=== PATIENT | female | born 1990 | race Caucasian/White ===

== ENCOUNTER 2025-01-22 09:49 | Emergency (ER) | payer OTHER, SELFPAY ==
[2025-01-22 09:51] VITALS: BP 116/81; PULSE 91; RESP 16; TEMP 36.4; O2SAT 98
--- NOTE | 2025-01-22 09:59 | ED.LOWEXIN ---
HPI - Extremity Injury (Lower) General Chief Complaint: Extremity Injury, Lower Stated Complaint: left knee pain Time Seen by Provider: 01/22/25 09:55 Source: patient Mode of arrival: ambulatory Limitations: no limitations History of Present Illness HPI Narrative: 34-year-old female with a history of hypertension, arthritis, anxiety/ depression presents to the ED with a 1 day history of -- left knee pain which is made worse while walking. No history of trauma. No prior knee pain. Onset (ago): day(s) ( One day) Injury: Left: knee Severity: moderate Relieving factors: immobilization Exacerbating factors: weight bearing Other symptoms: none Related Data Home Medications ?Medication ?Instructions ?Recorded ?Confirmed ?Last Taken ?Type bupropion HCl 150 mg 24 hr tablet, 150 mg PO DAILY 01/22/25 Unknown History extended release (Wellbutrin XL) fluoxetine 40 mg capsule 40 mg PO DAILY 01/22/25 Unknown History meloxicam 15 mg tablet 15 mg PO DAILY 01/22/25 Unknown History methocarbamol 500 mg tablet 500 mg PO TID 01/22/25 Unknown History propranolol 10 mg tablet 10 mg PO Q12H 01/22/25 Unknown History ropinirole 1 mg tablet 1 mg PO BID 01/22/25 Unknown History temazepam 15 mg capsule (Restoril) 15 mg PO HS 01/22/25 Unknown History topiramate 100 mg tablet (Topamax) 100 mg PO HS 01/22/25 Unknown History Allergies Allergy/AdvReac Type Severity Reaction Status Date / Time Penicillins Allergy Mild Rash Verified 01/22/25 09:59 Review of Systems Review of Systems: All systems reviewed & are unremarkable except as noted in HPI and below PMFSH Past Medical History Medical History Arthritis Hypertension Exam Narrative: afebrile. Blood pressure stable. Const: General: healthy appearing and no acute distress Nutritional Appearance: well nourished Orientation/consciousness: patient oriented x3 Limitations: no limitations HENMT: Head: normal to inspection Ears: external ears normal Face/Nose/Sinus: Normal external nose present Face and sinus: normal facial exam Mouth: Yes Normal oral and palatal mucosa present Teeth and gingiva: dentition normal Eyes: Conjunctivae: conjunctivae normal Pupils: Equal, round and reactive pupils present EOM: EOMs intact bilaterally Direct Ophthalmoscopy: no photophobia Neck: Neck: normal visual inspection, no lymphadenopathy and no meningeal signs Chest: Chest palpation & inspection: normal inspection of the chest Resp: Effort & Inspection: normal respiratory effort Auscultation: clear to auscultation bilaterally Cardio: Rate: regular rate Rhythm: regular rhythm GI: GI Palp: Yes Soft to palpation Auscultation: normal bowel sounds Other: No tenderness/rigidity / rebound. Back/Spine/Pelvis: Back: no CVA tenderness Skin: General skin exam: normal color Rashes: no rashes Wounds: no wounds Neuro: General: patient oriented x3, moves all extremities, no meningeal signs, no focal motor deficits and CN's II-XI intact bilaterally Speech: normal speech Extrem: General: normal to inspection and no clubbing, cyanosis or edema Other: Left knee-- no swelling. Minimal tenderness noted. Normal range of motion. sprain of the lateral collateral ligament of the knee Psych: Mental Status: mental status grossly normal Affect: normal affect Attitude: cooperative Course Course Emergency Course: left knee pain. No history of trauma. Exam is suggestive of sprain of the lateral collateral ligament. x-ray does not show any acute findings Vital Signs Vital signs: Vital Signs Temperature 36.4 C 01/22/25 09:51 Pulse Rate 91 01/22/25 09:51 Respiratory Rate 16 01/22/25 09:51 Blood Pressure 116/81 01/22/25 09:51 Pulse Oximetry 98 01/22/25 09:51 Oxygen Delivery Room Air 01/22/25 09:51 Temperature 36.4 C 01/22/25 09:51 Pulse Rate 91 01/22/25 09:51 Respiratory Rate 16 01/22/25 09:51 Blood Pressure 116/81 01/22/25 09:51 Pulse Oximetry 98 01/22/25 09:51 Oxygen Delivery Room Air 01/22/25 09:51 MDM - Extremity Injury (Lower) MDM Narrative Medical decision making narrative: Knee sprain Differential Diagnosis Differential diagnosis: Likely acute internal derangement of knee Lab Data Attestation: I reviewed the patient's lab results. Discharge Plan Discharge Clinical Impression: Knee sprain Qualifiers: Encounter type: initial encounter Involved ligament of knee: lateral collateral ligament Laterality: left Qualified Code(s): S83.422A - Sprain of lateral collateral ligament of left knee, initial encounter Patient Disposition: Home, Self-Care Condition: Stable Instructions: Antibiotic Form, Knee Sprain (ED) Patient Language: Luxembourgish Prescriptions: No Action bupropion HCl [Wellbutrin XL] 150 mg tablet extended release 24 hr 150 mg PO DAILY temazepam [Restoril] 15 mg capsule 15 mg PO HS topiramate [Topamax] 100 mg tablet 100 mg PO HS fluoxetine 40 mg capsule 40 mg PO DAILY meloxicam 15 mg tablet 15 mg PO DAILY methocarbamol 500 mg tablet 500 mg PO TID propranolol 10 mg tablet 10 mg PO Q12H ropinirole 1 mg tablet 1 mg PO BID Follow-up/Referrals: UNKNOWN,DOCTOR [Non-Staff] - Time of Disposition: 10:57
[2025-01-22 11:05] VITALS: BP 124/91; PULSE 86; RESP 18; TEMP 36.7; O2SAT 100
== END 2025-01-22 11:10 | disposition home or self-care (01) ==
PROVIDERS: Emergency Provider Internal Medicine Critical Care Medicine; PCP Family Medicine
DX: S83.422A Sprain of lateral collateral ligament of left knee, initial encounter (principal); I10 Essential (primary) hypertension; Z79.899 Other long term (current) drug therapy; Z79.1 Long term (current) use of non-steroidal anti-inflammatories (NSAID); X58.XXXA Exposure to other specified factors, initial encounter
CPT/HCPCS: 73562; 99283

== ENCOUNTER 2025-03-28 05:28 | Emergency (ER) | payer OTHER, SELFPAY ==
--- NOTE | ~2025-03-28 | XR_ITS ---
Lumbosacral Spine: AP and lateral views Clinical History: Pain Findings: The normal lordotic curve is maintained. The vertebral bodies and posterior elements are i ntact. The intervertebral disc spaces are preserved. The sacroiliac joints are normally outlined. Impression: No significant abnormality. Reviewed, dictated and finalized at [facility]. Impression: No significant abnormality.
--- OUTSIDE RECORDS SUMMARY | 2025-03-28 05:30 | XMS_ITS | Clinical Summary ---
Author Organization [facility] Address [address] [place] [address] Care Team Providers Care Manugrapher Name Role Phone Lorraine Grimaldo MD Primary Care Provider Jessy Michaels Unavailable [phone] Allergies Active Allergy Reactions Criticality Noted Date Comments Penicillins Rash Medium 08/24/2019 Medications cholecalciferol (Vitamin D3) 400 unit capsule Active meloxicam (MOBIC) 15 mg tablet Take 1 tablet (15 mg total) by mouth daily 3 Active buPROPion XL (WELLBUTRIN XL) 150 mg 24 hr tablet Take 1 tablet (150 mg total) by mouth security assistant before breakfast 3 Active rOPINIRole (REQUIP) 1 mg tablet Take 1 tablet (1 mg total) by mouth daily 3 Active temazepam (RESTORIL) 15 mg capsule Take 1 capsule (15 mg total) by mouth nightly as needed 3 Active medroxyPROGESTER one 150 mg/mL injection 4 Active methocarbamoL (ROBAXIN) 500 mg tablet 4 Active Nurtec ODT tablet,disintegr ating TAKE ONE TABLET BY MOUTH AT MIGRAINE ONSET 4 Active ALPRAZolam (XANAX) 0.5 mg tablet Take 1 tablet (0.5 mg total) by mouth 2 (two) times a day as needed 4 Active FLUoxetine (PROzac) 40 mg capsule Take 1 capsule (40 mg total) by mouth daily 4 Active topiramate (TOPAMAX) 100 mg tablet Take 1 tablet (100 mg total) by mouth nightly at bedtime. 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 Encounters Date Type Department Care Team Description 01/06/2025 1:00 PM DIRECT SUPPORT PROFESSIONAL HOME HEALTH [facility] [address] [place] [address] 4[address] [place] [id number] Manav Mendez MD Hemiplegic migraine without status migrainosus, not intractable (Primary Dx) 12/29/2024 [facility]phone [facility] [address] [place] [address] 4[address] [place] [address] Sarah Upton Symptom Based Call from Last 3 Months Surgical History Surgery Date Site/Laterality Comments RECONSTRUCTION 11/24/1993 - 11/23/1994 Craniofacial reconstruction Family History * Patient is adopted Medical History Relation Name Comments Diabetes Father Heart attack Father Hyperlipidemia Father Hypertension Father Heart attack Mother Hyperlipidemia Mother Hypertension Mother Relation Name Status Comments Father Mother Social History Tobacco Use Types Packs/Day Years Used Date Smoking Tobacco: Every Day Cigarettes Smokeless Tobacco: Never Tobacco Cessation:Ready to Q uit: Yes; Counseling Given: Yes Alcohol Use Standard Drinks/Week Comments Not Currently 0 (1 standard drink = 0.6 oz pur e alcohol) AUDIT-C Answer Date Recorded Q1: How often do you have a drink containing alc ohol? Monthly or less 11/10/2023 Average Number of Drinks Not on file 023 Frequency of Binge Drinking Not on file 10/24 Hunger Vital Sign Answer Date Recorded Within the past 12 months, y ou worried that your food would run out before you got the money to buy more. Never true 01/06/20 25 Within the past 12 months, t he food you bought just didn't last and you didn't have money to get more. Never true 01/06/2025 Personal Safety Answer Date Recorded Have you ever been in or are you currently in a harmful physical or emotional relationship or is someone making you feel afraid or unsafe? Denies 07/18/2023 Comments Unknown Sex and Gender Information Value Date Recorded Sex Assigned at Not on file Legal Sex Female 6:41 AM [employer] Gender Identity Female 11/25/2023 2:05 AM [employer] Sexual Orientation Straight 11/25/2023 2: 05 AM [employer] Obstetrics History Last Filed Vital Signs Vital Sign Reading Time Taken Comments Blood Pressure 111/61 01/06/2025 1:04 PM [employer] Pulse 72 01/06/2025 1:04 PM [employer] Temperature 36.3 C (97.4 F) 01/06/2025 1:04 PM [employer] Respiratory Rate 16 01/06/2025 1:04 PM [employer] Oxygen Saturation 95% 01/06/2025 1:04 PM [employer] Inhaled Oxygen Concentration - - Weight 71.2 kg (157 lb) 01/06/2025 1:04 PM [employer] [employer] [facility] Height 152.4 cm (5') 01/06/2025 1:04 PM [employer] [employer] [facility] Body Mass Index 30.66 01/06/2025 1:04 PM [employer] Plan of Treatment Health Maintenance Due Date Last Done Comments Cervical Cancer Screening 1990 Depression Screening 1990 Hepatitis C Screening 1990 Varicella Vaccines (2 of 2 - 2-dose childhood series) 10/05/2002 07/13/2002 Regular Well Visit/Exam 18-64 2008 Pneumococcal vaccine <65 (1 of 2 - PCV) 2009 DTaP/Tdap/Td Vaccine (8 - Td or Tdap) 04/27/2026 04/27/2016, 09/04/2006, 08/26/1996, Additional history exists Hepatitis B Screening Completed 12/23/2002 , 07/13/2002, 08/26/1996 Influenza Vaccine Completed 08/30/2024 HPV Vaccines Aged Out No longer eligi ble based on patient's age to complete this topic Insurance [facility] Care Teams Manugrapher Relationship Specialty Start Date End Date Lorraine Grimaldo MD [address] [place] [address] PCP - General Family Medicine 12/29/20 [place] [address] Physician International Marketing Manager Family Medicine 07/16/23
--- OUTSIDE RECORDS SUMMARY | 2025-03-28 05:30 | XMS_ITS | Referral Summary ---
Author Organization [facility] Address [address] [place] [id number] Care Team Providers Care Cap Machine Operator Name Role Phone Lorraine Grimaldo MD Primary Care Provider Jessy Michaels Unavailable [phone] Encounters Date Type Department Care Team Description 01/06/2025 1:00 PM PIPE LINE INSPECTOR [facility] [address] [place] [address] [address] [place] [address] Manav Mendez MD Hemiplegic migraine without status migrainosus, not intractable (Primary Dx) 12/29/2024 [facility]phone [facility] [address] [place] [address] [address] [place] [address] Sarah Upton Symptom Based Call from Last 3 Months Allergies Active Allergy Reactions Criticality Noted Date Comments Penicillins Rash Medium 08/24/2019 Medications cholecalciferol (Vitamin D3) 400 unit capsule Active meloxicam (MOBIC) 15 mg tablet Take 1 tablet (15 mg total) by mouth daily 3 Active buPROPion XL (WELLBUTRIN XL) 150 mg 24 hr tablet Take 1 tablet (150 mg total) by mouth lead burner apprentice before breakfast 3 Active rOPINIRole (REQUIP) 1 [...] 12/21/2024 Ocular rosacea 01/17/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 Social History Tobacco Use Types Packs/Day Years [...] on file Legal Sex Female 6:41 AM PIPE LINE INSPECTOR Gender Identity Female 11/25/2023 2:05 AM PIPE LINE INSPECTOR Sexual Orientation Straight 11/25/2023 2: 05 AM PIPE LINE INSPECTOR Last Filed Vital Signs Vital Sign Reading Time Taken Comments Blood Pressure 111/61 01/06/2025 1:04 PM PIPE LINE INSPECTOR Pulse 72 01/06/2025 1:04 PM PIPE LINE INSPECTOR Temperature 36.3 C (97.4 F) 01/06/2025 1:04 PM PIPE LINE INSPECTOR Respiratory Rate 16 01/06/2025 1:04 PM PIPE LINE INSPECTOR Oxygen Saturation 95% 01/06/2025 1:04 PM PIPE LINE INSPECTOR Inhaled Oxygen Concentration - - Weight 71.2 kg (157 lb) 01/06/2025 1:04 PM PIPE LINE INSPECTOR Height 152.4 cm (5') 01/06/2025 1:04 PM PIPE LINE INSPECTOR Body Mass Index 30.66 01/06/2025 1:04 PM PIPE LINE INSPECTOR Plan of Treatment Not on file Insurance [facility] Care Teams Cap Machine Operator Relationship Specialty Start Date End Date Lorraine Grimaldo MD [address] [place] [address] PCP - General Family Medicine 12/29/20 Jessy Michaels PA [address] [place] [address] Physician Bowling Ball Weigher And Packer Family Medicine 07/16/23
--- OUTSIDE RECORDS SUMMARY | 2025-03-28 05:31 | XMS_ITS | Clinical Summary ---
Author Organization [facility] Address [address] [place] [address] Care Team Providers Care Training Assistant Name Role Phone Lorraine Grimaldo MD Primary Care Provider [phone] Allergies Active Allergy Reactions Criticality Noted Date Comments Penicillins Unknown 08/24/2019 Reaction occurred when she was an infant therefore unsure of reaction Medications FLUoxetine 40 MG capsule Take 1 capsule (40 mg total) by mouth daily. Active Cholecalciferol 10 MCG (400 UNIT) Cap A ctive buPROPion XL (WELLBUTRIN XL) 150 MG 24 hr tablet Take 1 tablet (150 mg total) by mouth every morning. 3 Active meloxicam (MOBIC) 15 MG tablet Take 1 tablet (15 mg total) by mouth daily. 3 Active rOPINIRole (REQUIP) 1 MG tablet Take 1 tablet (1 mg total) by mouth nightly at bedtime. 3 Active temazepam (RESTORIL) 15 MG capsule Take 1 capsule (15 mg total) by mouth nightly as needed. 3 Active topiramate (TOPAMAX) 100 MG tablet Take 1 tablet (100 mg total) by mouth daily. Active ALPRAZolam (XANAX) 0.5 MG tablet Take 1 tablet (0.5 mg total) by mouth 2 (two) times daily as needed for Anxiety. Active methocarbamol (ROBAXIN) 500 MG tablet Take 1 tablet (500 mg total) by mouth 3 (three) times daily as needed. Active prochlorperazine (COMPAZINE) 10 MG tablet Take 1 tablet (10 mg total) by mouth every 6 (six) hours as needed. 4 Active propranolol (INDERAL) 10 MG tablet Take 1 tablet (10 mg total) by mouth 2 (two) times daily. 3 Active NURTEC 75 MG disintegrating tablet Take 1 tablet (75 mg total) by mouth once as needed. Active naproxen (NAPROSYN) 500 MG tablet Take 1 tablet (500 mg total) by mouth 2 (two) times daily. 5 Active Active Problems Problem Noted Date Diagnosed Date Neurological deficit present 07/02/2023 Right facial numbness 07/01/2023 IUGR (intrauterine growth re striction) affecting care of mother ([facility]) 02/02/2020 Threatened labor ([facility]) 01/01/2020 Multigravida in third trimester ([facility]) 2019 Overview (12/31/2019): EDC 02/23/2020 by 1st trimester sono. 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, antepartum ([facility] 12/31/2019 Overview (12/31/2019): Followed by MFM and last seen yesterday, 12/30/2019 labor in third trimester ([facility]) 12/31 Overview (12/31/2019): Contractions started at 1430 and arrived at [facility] at 1600 and dilated 4cm/zero station/70%/soft/vertex labor ([facility]) 12/31/2019 Encounters Date Type Department Care Team Description 03/18/[address] [address] Precious Powell FNP-VERNON Question 03/15/2025 1:45 PM CDT Office Visit [address] [address] Granat, Maryjane, PA New Patient; Work Comp (LEFT Knee); Knee Pain (DOI 01/21/2025) 03/15/2025 1:40 PM CDT - 03/15/2025 11:59 PM CDT Hospital Encounter [facility] [address] [place] [address] Maryjane Flores PA Discharge Disposition: Home or Self Care (Routine Discharge) 03/15/2025 MyChart Message Enc [address] [address] Maryjane Flores PA Visit Follow Up 03/15/2025 Travel 03/10/2025 Orders Only [address] [address] Maryjane Flores PA 03/09/[address] [address] Maryjane Flores PA Referral 03/03/2025 2:02 PM CDT - 03/03/2025 11:59 PM CDT Hospital Encounter [facility] [address] [place] [address] Cesilia Jimenez NP Discharge Disposition: Home or Self Care (Routine Discharge) 03/03/2025 Travel from Last 3 Months Family History Medical History Relation Comments Defects Daughter Cancer Father Diabetes Father Hypertension Father Cancer Maternal Uncle COPD Mother Hypertension Mother Hypertension Sister 1 YATES DISEASE Sister 1 Hypertension Sister 2 Relation Status Comments Daughter Alive Father Maternal Uncle Alive Mother Sister 1 Sister 2 Alive Social History Tobacco Use Types Packs/Day Years Used Date Smoking Tobacco: Some Days Cigarettes Smokeless Tobacco: Never Tobacco Cessation:Ready to Q uit: Not Asked; Counseling Given: Not Answered Comments:given counseling on effects on that baby Alcohol Use Standard Drinks/Week Comments No 0 (1 standard drink = 0.6 oz pur e alcohol) Humiliation, Afraid, Rape, and Kick questionnair e Answer Date Recorded Within the last year, have y ou been afraid of your partner or ex-partner? Patient declined 07/02/2023 Within the last year, have y ou been humiliated or emotionally abused in other ways by your partner or ex-partner? Patient declined 07/02/2023 Within the last year, have y ou been kicked, hit, slapped, or otherwise physically hurt by your partner or ex-partner? Patient declined 07/02/2023 Within the last year, have y ou been raped or forced to have any kind of sexual activity by your partner or ex-partner? Patient declined 07/02/2023 Social Connection and Isolation Panel [NHANES] A nswer Date Recorded In a typical week, how many times do you talk on the phone with family, friends, or neighbors? Patient declined 07/02/2023 How often do you get togethe r with friends or relatives? Patient declined 07/02/2023 How often do you attend mosque or mormon serv ices? Patient declined 07/02/2023 Do you belong to any clubs o r organizations such as mosque groups, unions, fraternal or athletic groups, or school groups? Patient declined 07/02/2023 How often do you attend meet ings of the clubs or organizations you belong to? Patient declined 07/02/2023 Are you , , di vorced, , never , or living with a partner? Patient declined 07/02/2023 AUDIT-C Answer Date Recorded Frequency of Alcohol Consumption Never 08/24/2019 Average Number of Drinks Not on file 019 Frequency of Binge Drinking Not on file 11/2018 Overall Financial Resource Strain (CARDIA) Answe r Date Recorded How hard is it for you to pa y for the very basics like food, housing, medical care, and heating? Patient declined 07/02/2023 [facility] - Occupational Stress Questionnaire Answer Date Recorded Do you feel stress - tense, restless, nervous, or anxious, or unable to sleep at night because your mind is troubled all the time - these days? Patient declined 07/02/2023 Exercise Vital Sign Answer Date Recorde d Days of Exercise per Week Patient declined 02/01 Minutes of Exercise per Session Patient declined 02/02/2020 Hunger Vital Sign Answer Date Recorded Within the past 12 months, y ou worried that your food would run out before you got the money to buy more. Patient declined Within the past 12 months, t he food you bought just didn't last and you didn't have money to get more. Patient declined 07/2023 PRAPARE - Transportation Answer Date Re corded In the past 12 months, has l ack of transportation kept you from medical appointments or from getting medications? Patient declined 07/02/2023 In the past 12 months, has l ack of transportation kept you from meetings, work, or from getting things needed for daily living? Patient declined 07/02/2023 Housing Stability Vital Sign Answer Enrique e Recorded In the last 12 months, was t here a time when you were not able to pay the mortgage or rent on time? Yes 07/02/2023 In the last 12 months, how many places have you lived? 1 07/02/2023 In the last 12 months, was t here a time when you did not have a steady place to sleep or slept in a alf (including now)? No 07/02/2023 Comments No Sex and Gender Information Value Date Recorded Sex Assigned at Female 12/22/2024 4:19 PM BOWLING BALL MOLDER Legal Sex Female 5:48 PM BOWLING BALL MOLDER Gender Identity Not on file Sexual Orientation Not on file Last Filed Vital Signs Vital Sign Reading Time Taken Comments Blood Pressure 112/67 11/12/2024 4:45 PM BOWLING BALL MOLDER Pulse 68 11/12/2024 4:45 PM BOWLING BALL MOLDER Temperature 36.1 C (97 F) 11/12/2024 2:47 PM BOWLING BALL MOLDER Respiratory Rate 16 11/12/2024 4:45 PM BOWLING BALL MOLDER Oxygen Saturation 100% 11/12/2024 4:45 PM BOWLING BALL MOLDER Inhaled Oxygen Concentration - - Weight 70.8 kg (156 lb) 03/15/2025 1:45 PM CDT Height 149.9 cm (4' 11 ) 03/15/2025 1:45 PM CDT Body Mass Index 31.51 03/15/2025 1:45 PM CDT Plan of Treatment Upcoming Encounters Date Type Department Care Team (Late st Contact Info) Description 03/31/2025 10:00 AM CDT Appointment [facility] [address] [place] [address] Ganga Gayle, PT [address] [place] [address] 04/27/2025 10:00 AM CDT Office Visit [facility] [address] [facility] [place] [address] Maryjane Flores PA [address] [facility] [address] [place] [address] Health Maintenance Due Date Last Done Comments Cervical Cancer Screening Pap Smear (Age 30 to 64) Every 3 Years 1990 Annual Physical 1993 Hepatitis C 2008 DTaP, Tdap and Td Vaccines (1 - Tdap) 2009 08/26/1996, 08/30/1993, 12/29/1991, Additional history exists Hepatitis B Vaccines (1 of 3 - 19+ 3-dose series) 2009 Pneumococcal Vaccine: Pediatrics (0 to 5 Years) and At-Risk Patients (6 to 49 Years) (1 of 2 - PCV) 2009 Cervical Cancer Screening Pap with HPV Testing (Age 30 to 64) Every 5 Years 2020 Cervical Cancer Screening with HPV 2020 COVID-19 Vaccine ( season) 2024 HPV Vaccines Aged Out No longer eligi ble based on patient's age to complete this topic Meningococcal B Vaccine Aged Out No l onger eligible based on patient's age to complete this topic Meningococcal Vaccine Aged Out No sofía cm eligible based on patient's age to complete this topic RSV Immunizations Under 20 Months Aged Out No longer eligible based on patient's age to complete this topic Procedures Procedure Name Priority Date/Time Associated Diagnosis Comments XR KNEE STAND AP FRANNY ONLY Routine 03/15/2025 1:44 PM CDT Left knee pain MRI KNEE LT WO CON Routine 03/03/2025 3: 08 PM CDT Knee injury, left, initial encounter from Last 3 Months Results * XR KNEE STAND AP FRANNY ONLY (03/15/2025 1:44 PM CDT) Anatomical Region Laterality Modality Knee Radiographic Cortney ging 03/15/2025 2:10 PM CDT Impressions 03/15/2025 2:17 PM CDT IMPRESSION: No acute findings. Stable mild medial femorotibial joint space narrowing. Ordered By: MARYJANE FLORES Interpreted By: Robert Allred MD, 03/15/2025 2:10 PM Narrative 03/15/2025 2:17 PM CDT [address] [place] [address] Examination: Bilateral knees. Exam time: 1242 hours. Clinical history: Left knee pain. Comparison: 12/31/2022. Technique: Weightbearing PA view. Findings: No fracture, dislocation or other acute bony abnormality is identified. There is stable mild symmetric medial femorotibial joint space narrowing. No other significant bone or joint abnormality is noted. Os fabella on the left is again evident. The soft tissues are unremarkable. Procedure Note Robert Allred MD - 03/15/[address] [place] [address] Examination: Bilateral knees. Exam time: 1242 hours. Clinical history: Left knee pain. Comparison: 12/31/2022. Technique: Weightbearing PA view. Findings: No fracture, dislocation or other acute bony abnormality isidentified. There is stable mild symmetric medial femorotibial joint spacenarrowing. No other significant bone or joint abnormality is noted. Osfabella on the left is again evident. The soft tissues are unremarkable. IMPRESSION: No acute findings. Stable mild medial femorotibial joint spacenarrowing. Ordered By: MARYJANE FLORES Interpreted By: Robert Allred MD, 03/15/2025 2:10 PM us [facility] Final Result * MRI KNEE LT WO CON (03/03/2025 3:08 PM CDT) Anatomical Region Laterality Modality Knee Magnetic Resonan ce 03/03/2025 3:45 PM CDT Impressions 03/03/2025 3:52 PM CDT Impression: 1. Subcortical marrow edema involving the weightbearing surface of the medial femoral condyle, favored to represent a bone contusion. No displaced fracture is identified. 2. Small focal full-thickness chondral defect involving the weightbearing medial femoral condyle, underlying the region of marrow edema. 3. The menisci and cruciate ligaments are intact. 4. Small popliteal cyst. Ordered By: CESILIA JIMENEZ Interpreted By: Franko Velasquez MD, 03/03/2025 3:45 PM Narrative 03/03/2025 3:52 PM CDT [address] [place] [address] Examination: MRI KNEE LT WO CON Clinical Information: Knee pain. Comparison: Radiographs December 31, 2022. Technique: Multiplanar, multisequence MR images of the left knee were obtained without contrast. Findings: MENISCI: Medial meniscus: Intact. Lateral meniscus: Intact. LIGAMENTS: Cruciate ligaments: Intact. Medial collateral ligament: Superficial and deep components intact. No periligamentous edema. Lateral collateral ligament: Intact. Posterolateral corner structures: Intact. Posteromedial corner structures: Intact. EXTENSOR MECHANISM: The distal quadriceps and patellar tendons are intact. The patella is normally positioned within the femoral groove. There is no retinacular disruption. FLUID: Joint effusion: No joint effusion. Velasco cyst/ganglion cyst: A small popliteal cyst is present. OSSEOUS/ARTICULAR STRUCTURES: Bones: There is subcortical marrow edema involving the weightbearing surface of the medial femoral condyle, favored to represent a bone contusion. No displaced fracture is identified. No destructive bone lesions noted. Patellofemoral compartment: No hyaline cartilage disease. Medial compartment: Small focal full-thickness chondral defect involving the weightbearing medial femoral condyle, underlying the region of marrow edema. Lateral compartment: No hyaline cartilage disease. Intra-articular fragments: None. OTHER: None. Procedure Note Franko Velasquez MD - 03/03/[address] [place] [address] Examination: MRI KNEE LT WO CON Clinical Information: Knee pain. Comparison: Radiographs December 31, 2022. Technique: Multiplanar, multisequence MR images of the left knee wereobtained without contrast. Findings: MENISCI: Medial meniscus: Intact. Lateral meniscus: Intact. LIGAMENTS: Cruciate ligaments: Intact. Medial collateral ligament: Superficial and deep components intact. Noperiligamentous edema. Lateral collateral ligament: Intact. Posterolateral corner structures: Intact. Posteromedial corner structures: Intact. EXTENSOR MECHANISM: The distal quadriceps and patellar tendons are intact. The patella isnormally positioned within the femoral groove. There is no retinaculardisruption. FLUID: Joint effusion: No joint effusion. Velasco cyst/ganglion cyst: A small popliteal cyst is present. OSSEOUS/ARTICULAR STRUCTURES: Bones: There is subcortical marrow edema involving the weightbearingsurface of the medial femoral condyle, favored to represent a bonecontusion. No displaced fracture is identified. No destructive bonelesions noted. Patellofemoral compartment: No hyaline cartilage disease. Medial compartment: Small focal full-thickness chondral defect involvingthe weightbearing medial femoral condyle, underlying the region of marrowedema. Lateral compartment: No hyaline cartilage disease. Intra-articular fragments: None. OTHER: None. Impression: 1. Subcortical marrow edema involving the weightbearing surface of themedial femoral condyle, favored to represent a bone contusion. Nodisplaced fracture is identified. 2. Small focal full-thickness chondral defect involving the weightbearingmedial femoral condyle, underlying the region of marrow edema. 3. The menisci and cruciate ligaments are intact. 4. Small popliteal cyst. Ordered By: CESILIA JIMENEZ Interpreted By: Franko Velasquez MD, 03/03/2025 3:45 PM Cesilia Jimenez RETAIL RESET MERCHANDISER MRI Final Resul t from Last 3 Months Insurance [employer] Advance Directives * Full Code (Latest Code Status on File) Date Activated Date Inactivated Comments 07/01/2023 9:52 PM 07/03/2023 1:16 PM * Full Code Date Activated Date Inactivated Comments 02/02/2020 6:20 AM 02/02/2020 8:25 PM * Full Code Date Activated Date Inactivated Comments 01/24/2020 10:26 AM 01/24/2020 1:36 PM * Full Code Date Activated Date Inactivated Comments 12/31/2019 7:54 PM 01/12/2020 9:47 PM * Full Code Date Activated Date Inactivated Comments 12/31/2019 4:08 PM 12/31/2019 7:38 PM Care Teams Training Assistant Relationship Specialty Start Date End Date Lorraine Grimaldo MD [address] [address] PCP - General FAMILY PRACTICE 08/24/19
--- OUTSIDE RECORDS SUMMARY | 2025-03-28 05:31 | XMS_ITS | Encounter Summary ---
Author Organization [facility] Address [facility] [place] [address] Care Team Providers Care Meter Inspector Name Role Phone Lorraine Grimaldo MD Primary Care Provider [phone] Encounter Details Date Type Department Care Team (Late st Contact Info) Description 03/15/2025 Mapflow Message Enc [facility] [place] [address] Kecia Galicia PA [address] [place] [address] Visit Follow Up Social History Tobacco Use Types Packs/Day Years Used Date Smoking Tobacco: Some Days Cigarettes Smokeless Tobacco: Never Comments:given counseling on effects on that baby [...] declined 07/02/2023 How often do you attend druze or restorationist serv ices? Patient declined 07/02/2023 Do you belong to any clubs o r organizations such as druze groups, unions, fraternal or athletic groups, or [...] medical care, and heating? Patient declined 07/02/2023 [facility] - Occupational Stress Questionnaire Answer Date Recorded [...] place to sleep or slept in a senior care (including now)? No 07/02/2023 Comments No Sex and Gender Information Value Date Recorded Sex Assigned at Female 12/22/2024 4:19 PM DURALUMIN METALWORKER Legal Sex Female 5:48 PM DURALUMIN METALWORKER Gender Identity Not on file Sexual Orientation Not on file documented as of this encounter Functional Status * Are you deaf or do you have serious difficulty hearing Answer Date of Assessment Author Status No 07/02/2023 6:00 AM CDT Torri Meyer RN Active * Are you blind or do you have serious difficulty seeing, even when wearing glasses? Answer Date of Assessment Author Status No 07/02/2023 6:00 AM CDT Torri Meyer RN Active * Do you have serious difficulty walking or climbing stairs? Answer Date of Assessment Author Status No 07/02/2023 6:00 AM ELIANET Torri Meyer RN Active * Do you have difficulty dressing or bathing? Answer Date of Assessment Author Status No 07/02/2023 6:00 AM ELIANET Torri Meyer RN Active * Because of a physical, mental, or emotional condition, do you have difficulty doing errands alone such as visiting a doctor's office or shopping? Answer Date of Assessment Author Status No 07/02/2023 6:00 AM ELIANET Torri Meyer RN Active documented as of this encounter Mental Status * Because of a physical, mental, or emotional condition, do you have serious difficulty concentrating, remembering, or making decisions? Answer Entry Date Author Status No 07/02/2023 6:00 AM ELIANET Torri Meyer RN Active documented in this encounter Plan of Treatment Upcoming Encounters Date Type Department Care Team (Late st Contact Info) Description 03/31/2025 10:00 AM CDT Appointment [facility] [address] [place] [address] Ganga Gayle, PT [address] [place] [address] 04/27/2025 10:00 AM CDT Office Visit [facility] [address] [facility], [address] [address] Kecia Galicia PA [address] [address] documented as of this encounter Visit Diagnoses Not on filedocumented in this encounter Care Teams Meter Inspector Relationship Specialty Start Date End Date Lorraine Grimaldo MD [address] [facility] [place] [id number] PCP - General FAMILY PRACTICE 08/24/19 documented as of this encounter
--- NOTE | 2025-03-28 05:32 | ED_ITS ---
HPI - Back Pain/Injury General Chief Complaint: Back Pain/Injury Stated Complaint: Lower back pain Time Seen by Provider: 03/28/25 05:31 Source: patient Mode of arrival: ambulatory Limitations: no limitations History of Present Illness HPI Narrative: Patient is a 34-year-old female with lumbar pain for the past 3 days. She has history of scoliosis and says that this happens from time to time. She has not had a back pain in a while. She has no reason for this toe flare except the scoliosis. MD elicited complaint: back pain Pertinent past history: prior back pain ( Scoliosis) Onset (ago): day(s) ( 3) Timing: constant Severity: moderate Pain scale (0-10): 5 Similar Symptoms Previously: Yes Quality: sharp, aching and throbbing Location: lumbar spine Radiation: none Exacerbating factors: movement Relieving factors: immobilization and sitting upright Context: other ( patient has progressively worse low back pain on the left greater than the right of the spine) Associated symptoms: denies other symptoms Treatments prior to arrival: other ( none) Work related injury: No Related Data Home Medications ?Medication ?Instructions ?Recorded ?Confirmed ?Last Taken ?Type bupropion HCl 150 mg 24 hr tablet, 150 mg PO DAILY 01/22/25 Unknown History extended release (Wellbutrin XL) fluoxetine 40 mg capsule 40 mg PO DAILY 01/22/25 Unknown History meloxicam 15 mg tablet 15 mg PO DAILY 01/22/25 Unknown History methocarbamol 500 mg tablet 500 mg PO TID 01/22/25 Unknown History propranolol 10 mg tablet 10 mg PO Q12H 01/22/25 Unknown History ropinirole 1 mg tablet 1 mg PO BID 01/22/25 Unknown History temazepam 15 mg capsule (Restoril) 15 mg PO HS 01/22/25 Unknown History topiramate 100 mg tablet (Topamax) 100 mg PO HS 01/22/25 Unknown History Allergies Allergy/AdvReac Type Severity Reaction Status Date / Time Penicillins Allergy Mild Rash Verified 03/28/25 05:44 Review of Systems Review of Systems: All systems reviewed & are unremarkable except as noted in HPI and below Constitutional: Constitutional: Reports no additional constitutional complaints Eyes: Eyes: Reports no additional eye complaints ENT: Reports system reviewed and no additional complaints, except as documented Cardiovascular: Cardiovascular: Reports no additional cardiovascular complaints Respiratory: Respiratory: Reports no additional respiratory complaints Gastrointestinal: Gastrointestinal: Reports no additional gastrointestinal complaints Genitourinary: Genitourinary: Reports no additional female genitourinary complaints Musculoskeletal: Musculoskeletal: Reports no additional musculoskeletal complaints Integumentary/Breasts: Skin/Breast: Reports system reviewed and no additional complaints, except as docu Neurologic: Reports system reviewed and no additional complaints, except as documented Psychiatric: Psychiatric: Reports no additional psychiatric complaints Endocrine: Endocrine: Reports no additional endocrine complaints Hematologic/Lymphatic: Hematologic/Lymphatic: Reports no additional hematologic/lymphatic complaints Allergic/Immunologic: Allergic/Immunologic: Reports no additional allergic/immunologic complaints PMFSH Past Medical History Medical History Arthritis Hypertension Exam Const: General: healthy appearing Nutritional Appearance: well nourished Orientation/consciousness: patient oriented x3 Limitations: no limitations Other: patient appears to be in pain HENMT: Head: normal to inspection Ears: external ears normal Face/Nose /Sinus: Normal external nose present Eyes: Conjunctivae: conjunctivae normal Pupils: Equal, round and reactive pupils present EOM: EOMs intact bilaterally Neck: Neck: normal visual inspection Chest: Chest palpation & inspection: normal inspection of the chest Resp: Effort & Inspection: normal respiratory effort and not labored Auscultation: clear to auscultation bilaterally and no crackles Cardio: Rate: regular rate Rhythm: regular rhythm Heart sounds: no murmurs GI: Inspection: non-distended GI Palp: Yes Soft to palpation and No Tenderness to palpation present (GI) Auscultation: normal bowel sounds : General: Yes bladder normal to palpation Back/Spine/Pelvis: Back: no CVA tenderness Other: tender left paraspinal muscles to palpation and tightness appreciated greater than the right side; pain is more tender on the left than the right and it does not go to the buttocks or below to lower extremity Skin: General skin exam: normal color Rashes: no rashes Wounds: no wounds Neuro: General: patient oriented x3, moves all extremities, no meningeal signs, no focal motor deficits and CN's II-XI intact bilaterally Cranial ner ves: Yes Nystagmus not present Speech: normal speech Gait exam (Neuro): Normal gait present Other: straight leg test bilateral was negative Extrem: General: normal to inspection Psych: Mental Status: mental status grossly normal Affect: normal affect Attitude: cooperative Course Vital Signs Vital signs: Vital Signs Temperature 36.5 C 03/28/25 05:35 Pulse Rate 83 03/28/25 05:35 Respiratory Rate 15 03/28/25 05:35 Blood Pressure 104/81 03/28/25 05:35 Pulse Oximetry 98 03/28/25 05:35 Oxygen Delivery Room Air 03/28/25 05:35 Temperature 36.5 C 03/28/25 05:35 Pulse Rate 83 03/28/25 05:35 Respiratory Rate 15 03/28/25 05:35 Blood Pressure 104/81 03/28/25 05:35 Pulse Oximetry 98 03/28/25 05:35 Oxygen Delivery Room Air 03/28/25 05:35 MDM - Back Pain/Injury MDM Narrative Medical decision making narrative: patient is a 34-year-old female with lumbar back pain and no scoliosis with flares at times. We will start with an x-ray and Toradol. Patient is not per history. Imaging Data Attestation: I personally reviewed and interpreted this imaging study as follows: Radiologist's impression: X-ray lumbar spine was negative for acute process Discharge Plan Discharge Clinical Impression: Lumbago Qualifiers: Chronicity: acute Back pain laterality: left Sciatica presence: without sciatica Qualified Code(s): M54.50 - Low back pain, unspecified Patient Disposition: Home Condition: Stable Instructions: Acute Low Back Pain (ED) Patient Language: French Prescriptions: New orphenadrine citrate 100 mg tablet extended release 100 mg PO BID PRN (Reason: pain) Qty: 20 0RF ibuprofen 600 mg tablet 600 mg PO TID PRN (Reason: pain) Qty: 20 0RF No Action bupropion HCl [Wellbutrin XL] 150 mg tablet extended release 24 hr 150 mg PO DAILY temazepam [Restoril] 15 mg capsule 15 mg PO HS topiramate [Topamax] 100 mg tablet 100 mg PO HS fluoxetine 40 mg capsule 40 mg PO DAILY meloxicam 15 mg tablet 15 mg PO DAILY methocarbamol 500 mg tablet 500 mg PO TID propranolol 10 mg tablet 10 mg PO Q12H ropinirole 1 mg tablet 1 mg PO BID Follow-up/Referrals: Lorraine Grimaldo MD [Primary Care Provider] -
[2025-03-28 05:35] VITALS: BP 104/81; PULSE 83; RESP 15; TEMP 36.5; O2SAT 98
[2025-03-28] MEDS: KETOROLAC (*BKC) 60 MG/2 ML VIAL IM (05:53)
--- NOTE | 2025-03-28 05:58 | PC.NURSE ---
patient medicated for pain, see MAR. taken to imaging via stretcher per fur grader.
--- OUTSIDE RECORDS SUMMARY | 2025-03-28 06:13 | XMS_ITS | Referral Summary ---
Author Organization [facility] Address [address] [place] [id number] Care Team Providers Care Marine Oiler Name Role Phone Lorraine Grimaldo MD Primary Care Provider Jessy Michaels Unavailable [phone] Encounters Date Type Department Care Team Description 01/06/2025 1:00 PM FINE DINING SERVER [facility] [address] [place] [address] [address] [place] [address] Manav Mendez MD Hemiplegic migraine without status migrainosus, not intractable (Primary Dx) 12/29/2024 Telephone [facility] [address] [place] [address] [address] [place] [address] Sarah Upton Symptom Based Call [...] 1 tablet (150 mg total) by mouth grocery team member before breakfast 3 Active rOPINIRole (REQUIP) 1 [...] on file Legal Sex Female 6:41 AM FINE DINING SERVER Gender Identity Female 11/25/2023 2:05 AM FINE DINING SERVER Sexual Orientation Straight 11/25/2023 2: 05 AM FINE DINING SERVER Last Filed Vital Signs Vital Sign Reading Time Taken Comments Blood Pressure 111/61 01/06/2025 1:04 PM FINE DINING SERVER Pulse 72 01/06/2025 1:04 PM FINE DINING SERVER Temperature 36.3 C (97.4 F) 01/06/2025 1:04 PM FINE DINING SERVER Respiratory Rate 16 01/06/2025 1:04 PM FINE DINING SERVER Oxygen Saturation 95% 01/06/2025 1:04 PM FINE DINING SERVER Inhaled Oxygen Concentration - - Weight 71.2 kg (157 lb) 01/06/2025 1:04 PM FINE DINING SERVER Height 152.4 cm (5') 01/06/2025 1:04 PM FINE DINING SERVER Body Mass Index 30.66 01/06/2025 1:04 PM FINE DINING SERVER Plan of Treatment Not on file Insurance [facility] Care Teams Marine Oiler Relationship Specialty Start Date End Date Lorraine Grimaldo MD [address] [place] [address] PCP - General Family Medicine 12/29/20 Jessy Michaels PA [address] [place] [address] Physician Ergonomist Family Medicine 07/16/23
--- OUTSIDE RECORDS SUMMARY | 2025-03-28 06:13 | XMS_ITS | Encounter Summary ---
Author Organization [facility] Address [facility] [place] [address] Care Team Providers Care Tool Machine Setup Operator Name Role Phone Lorraine Grimaldo MD Primary Care Provider [phone] Encounter Details Date Type Department Care Team (Late st Contact Info) Description 03/15/2025 [employer] Message Enc [place] [address] Kecia Galicia PA [address] [place] [address] Visit Follow Up Social History Tobacco Use [...] declined 07/02/2023 How often do you attend moravian or islam serv ices? Patient declined 07/02/2023 Do you belong to any clubs o r organizations such as moravian groups, unions, fraternal or athletic groups, or [...] medical care, and heating? Patient declined 07/02/2023 [facility] - Occupational Stress Questionnaire Answer Date Recorded [...] place to sleep or slept in a [place] health care facility (including now)? No 07/02/2023 Comments No Sex and Gender Information Value Date Recorded Sex Assigned at Female 12/22/2024 4:19 PM ENERGY SYSTEMS LABORATORY DIRECTOR Legal Sex Female 5:48 PM ENERGY SYSTEMS LABORATORY DIRECTOR Gender Identity Not on file Sexual Orientation [...] Info) Description 03/31/2025 10:00 AM CDT Appointment [facility] [address] [place] [address] Ganga Gayle, PT [address] [place] [address] 04/27/2025 10:00 AM CDT Office Visit [facility] [address] [facility], [address] [address] Kecia Galicia PA [address] [address] documented as of this encounter Visit Diagnoses Not on filedocumented in this encounter Care Teams Tool Machine Setup Operator Relationship Specialty Start Date End Date Lorraine Grimaldo MD [address] [facility] [place] [id number] PCP - General FAMILY PRACTICE 08/24/19 documented as of this encounter
--- OUTSIDE RECORDS SUMMARY | 2025-03-28 06:13 | XMS_ITS | Clinical Summary ---
Author Organization [facility] Address [address] [place] [address] Care Team Providers Care Inspector Assembly Name Role Phone Lorraine Grimaldo MD Primary Care Provider [phone] Allergies Active Allergy Reactions Criticality Noted Date [...] growth re striction) affecting care of mother ([facility]) 02/02/2020 Threatened labor ([facility]) 01/01/2020 Multigravida in third trimester ([facility]) 2019 Overview (12/31/2019): EDC 02/23/2020 by 1st trimester sono. 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 at 1600 and dilated 4cm/zero station/70%/soft/vertex labor ([facility]) 12/31/2019 Encounters Date Type Department Care Team Description 03/18/[address] [address] Precious Powell FNP-VERNON Question 03/15/2025 1:45 PM CDT Office Visit [address] [address] Granat, Maryjane, PA New Patient; Work Comp (LEFT Knee); Knee Pain (DOI 01/21/2025) 03/15/2025 1:40 PM CDT - 03/15/2025 11:59 PM CDT Hospital Encounter [facility] [address] [place] [address] Maryjane Flores PA Discharge Disposition: Home or Self Care (Routine Discharge) 03/15/2025 MyChart Message Enc [address] [address] Maryjane Flores PA Visit Follow Up 03/15/2025 Travel 03/10/2025 Orders Only [address] [address] Maryjane Flores PA 03/09/[address] [address] Maryjane Flores PA Referral 03/03/2025 2:02 PM CDT - 03/03/2025 11:59 PM CDT Hospital Encounter [facility] [address] [facility] [place] [address] Cesilia Jimenez NP Discharge Disposition: Home or [...] declined 07/02/2023 How often do you attend shinto or methodist serv ices? Patient declined 07/02/2023 Do you belong to any clubs o r organizations such as shinto groups, unions, fraternal or athletic groups, or [...] medical care, and heating? Patient declined 07/02/2023 [facility] - [...] place to sleep or slept in a fpc (including now)? No 07/02/2023 Comments No Sex and Gender Information Value Date Recorded Sex Assigned at Female 12/22/2024 4:19 PM HYPERBARIC WELDER DIVER Legal Sex Female 5:48 PM HYPERBARIC WELDER DIVER Gender Identity Not on file Sexual Orientation Not on file Last Filed Vital Signs Vital Sign Reading Time Taken Comments Blood Pressure 112/67 11/12/2024 4:45 PM HYPERBARIC WELDER DIVER Pulse 68 11/12/2024 4:45 PM HYPERBARIC WELDER DIVER Temperature 36.1 C (97 F) 11/12/2024 2:47 PM HYPERBARIC WELDER DIVER Respiratory Rate 16 11/12/2024 4:45 PM HYPERBARIC WELDER DIVER Oxygen Saturation 100% 11/12/2024 4:45 PM HYPERBARIC WELDER DIVER Inhaled Oxygen Concentration - - Weight 70.8 kg (156 lb) 03/15/2025 1:45 PM CDT Height 149.9 cm (4' 11 ) 03/15/2025 1:45 PM CDT Body Mass Index 31.51 03/15/2025 1:45 PM CDT Plan of Treatment Upcoming Encounters Date Type Department Care Team (Late st Contact Info) Description 03/31/2025 10:00 AM CDT Appointment [facility] [address] [place] [address] Ganga Gayle, PT [address] [place] [address] 04/27/2025 10:00 AM CDT Office Visit [facility] [address] [facility] [address] [place] [address] Maryjane Flores PA [address] [facility] [address] [place] [address] Health Maintenance Due Date Last Done Comments [...] 2:10 PM Narrative 03/15/2025 2:17 PM CDT [address] [place] [address] Examination: Bilateral knees. Exam time: 1242 hours. [...] Procedure Note Robert Allred MD - 03/15/[address] [place] [address] Examination: Bilateral knees. Exam time: 1242 hours. [...] 3:45 PM Narrative 03/03/2025 3:52 PM CDT [address] [place] [address] Examination: MRI KNEE LT WO CON Clinical [...] Procedure Note Franko Velasquez MD - 03/03/[address] [place] [address] Examination: MRI KNEE LT WO CON Clinical [...] Velasquez MD, 03/03/2025 3:45 PM Cesilia Jimenez DRY GOODS CLERK MRI Final Resul t from Last 3 [...] 4:08 PM 12/31/2019 7:38 PM Care Teams Inspector Assembly Relationship Specialty Start Date End Date Lorraine Grimaldo MD [address] [facility] [place] [address] PCP - General FAMILY PRACTICE 08/24/19
--- OUTSIDE RECORDS SUMMARY | 2025-03-28 06:13 | XMS_ITS | Clinical Summary ---
Author Organization [facility] Address [address] [place] [address] Care Team Providers Care Wood Heel Finisher Name Role Phone Lorraine Grimaldo MD Primary Care Provider Jessy Michaels Unavailable [phone] Allergies Active Allergy Reactions Criticality Noted Date Comments Penicillins Rash Medium 08/24/2019 Medications cholecalciferol (Vitamin D3) 400 unit capsule Active meloxicam (MOBIC) 15 mg tablet Take 1 tablet (15 mg total) by mouth daily 3 Active buPROPion XL (WELLBUTRIN XL) 150 mg 24 hr tablet Take 1 tablet (150 mg total) by mouth antique clocks repairer before breakfast 3 Active rOPINIRole (REQUIP) 1 [...] Department Care Team Description 01/06/2025 1:00 PM PROJECT GEOLOGIST [facility] [address] [place] [address] [address] [place] [id number] Manav Mendez MD Hemiplegic migraine without status migrainosus, not intractable (Primary Dx) 12/29/2024 Telephone [facility] [address] [place] [address] [address] [place] [address] Sarah Upton Symptom Based Call [...] on file Legal Sex Female 6:41 AM PROJECT GEOLOGIST Gender Identity Female 11/25/2023 2:05 AM PROJECT GEOLOGIST Sexual Orientation Straight 11/25/2023 2: 05 AM PROJECT GEOLOGIST Obstetrics History Last Filed Vital Signs Vital Sign Reading Time Taken Comments Blood Pressure 111/61 01/06/2025 1:04 PM PROJECT GEOLOGIST Pulse 72 01/06/2025 1:04 PM PROJECT GEOLOGIST Temperature 36.3 C (97.4 F) 01/06/2025 1:04 PM PROJECT GEOLOGIST Respiratory Rate 16 01/06/2025 1:04 PM PROJECT GEOLOGIST Oxygen Saturation 95% 01/06/2025 1:04 PM PROJECT GEOLOGIST Inhaled Oxygen Concentration - - Weight 71.2 kg (157 lb) 01/06/2025 1:04 PM PROJECT GEOLOGIST Height 152.4 cm (5') 01/06/2025 1:04 PM PROJECT GEOLOGIST Body Mass Index 30.66 01/06/2025 1:04 PM PROJECT GEOLOGIST Plan of Treatment Health Maintenance Due Date [...] patient's age to complete this topic Insurance [facility] Care Teams Wood Heel Finisher Relationship Specialty Start Date End Date Lorraine Grimaldo MD [address] [place] [address] PCP - General Family Medicine 12/29/20 [place] [address] Physician Construction Craft Laborer Family Medicine 07/16/23
--- NOTE | 2025-03-28 06:40 | PC.NURSE ---
patient update provided. given water per ERP okay and warm blanket. call light within reach. significant other at bedside.
--- NOTE | 2025-03-28 06:58 | PC.NURSE ---
Dr. Elmore at bedside speaking with patient regarding results and plan of care.
[2025-03-28] MEDS: HYDROcodone/acetaminophen (*CRX) 5-325 MG TABLET 1 TAB PO (07:00)
[2025-03-28 07:02] VITALS: BP 98/70; PULSE 78; RESP 18; TEMP 36.7; O2SAT 98
== END 2025-03-28 07:10 | disposition home or self-care (01) ==
PROVIDERS: Emergency Provider Emergency Medicine; PCP Family Medicine
DX: M54.50 Low back pain, unspecified (principal); I10 Essential (primary) hypertension
CPT/HCPCS: 72100; 96372; 96375; 99283; A9270; J1885

== ENCOUNTER 2025-08-15 12:02 | Emergency (ER) | payer SELFPAY ==
--- NOTE | ~2025-08-15 | CT_ITS ---
EXAMINATION: CT sinus wo con DATE: 08/15/2025 12:35 INDICATION: Right maxillary pain TECHNIQUE: Computed tomography (CT) of the paranasal sinuses was performed without intravenous contrast. The dose-length product was 254.74 mGy-cm. COMPARISON: None FINDINGS: Prior surgical changes are noted about the calvarium, sinuses and right orbit. Paranasal sinuses are clear. Mastoid air cells are clear. External auditory canals are clear. The palatine tonsils are prominent. Globes are intact. IMPRESSION: 1. Paranasal sinuses and mastoid air cells are clear. 2. The palatine tonsils are prominent, left greater than right.. Reviewed, dictated and finalized at location Q.
[2025-08-15 12:05] VITALS: BP 99/67; PULSE 85; RESP 16; TEMP 36.4; O2SAT 99
--- OUTSIDE RECORDS SUMMARY | 2025-08-15 12:50 | XMS_ITS | Clinical Summary ---
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 07/01/20 23 Active rOPINIRole (REQUIP) 1 mg tablet Take 1 tablet (1 mg total) by mouth daily 07/01/20 23 Active temazepam (RESTORIL) 15 mg capsule Take 1 capsule (15 mg total) by mouth nightly as needed 05/02/20 23 Active medroxyPROGEST ERone 150 mg/mL injection 05/19/20 24 Active Nurtec ODT tablet,disinte grating TAKE ONE TABLET BY MOUTH AT MIGRAINE ONSET 04/12/20 24 Active ALPRAZolam (XANAX) 0.5 mg tablet Take 1 tablet (0.5 mg total) by mouth 2 (two) times a day as needed 05/03/20 24 Active FLUoxetine (PROzac) 40 mg capsule Take 1 capsule (40 mg total) by mouth daily 05/11/20 24 Active topiramate (TOPAMAX) 100 mg tablet Take 1 tablet (100 mg total) by mouth nightly at bedtime. 05/13/20 24 Active propranoloL (INDERAL) 10 mg tablet Take 1 tablet (10 mg total) by mouth 2 (two) times a day Active prochlorperazi ne (COMPAZINE) 10 mg tabletIndicati ons:Hemiplegic migraine without status migrainosus, not intractable Take 1 tablet (10 mg total) by mouth every 6 (six) hours as needed for nausea or vomiting (For Hemiplegic migraines) 30 tablet 07/26/20 25 Active meloxicam (MOBIC) 15 mg tablet Take 1 tablet (15 mg total) by mouth daily 05/31/20 025 Discontinued(Levar springer Reported) methocarbamoL (ROBAXIN) 500 mg tablet 05/19/20 24 025 Discontinued(Levar springer Reported) prochlorperazi ne (COMPAZINE) 10 mg tabletIndicati ons:Hemiplegic migraine without status migrainosus, not intractable Take 1 tablet (10 mg total) by mouth every 6 (six) hours as needed for nausea or vomiting (For Hemiplegic migraines) 30 tablet 08/24/20 24 025 Discontinued Active Problems Problem Noted Date Diagnosed Date Acute intractable headache, unspecified headache type 07/25/2025 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 01/17/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 Encounters Date Type Department Care Team Description 08/10/2025 [facility] [address] [place] [address] [address]th [address] [place] [address] Sarah Upton 08/01/2025 [facility] [address] [place] [address] 4th [address] [place] [address] Amy Borrego Medical Question/Miscellaneo us 07/29/2025 [facility] [address] [place] [address] 4th [address] [place] [address] Domenica Haynes Discuss Test Results 07/25/2025 12:19 PM CDT - 07/26/2025 12:53 PM CDT Hospital Encounter [facility] [address] [place] [address] Eliane España MD Poirier, Robert F. 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 Gender Identity Female 11/25/2023 2:05 AM RF TEST ENGINEER Sexual Orientation Straight 11/25/2023 2 :05 AM RF TEST ENGINEER Obstetrics History Last Filed Vital Signs Vital Sign Reading Time Taken Comments Blood Pressure 105/71 07/26/2025 8:00 AM CDT Pulse 78 07/26/2025 8:00 AM CDT Temperature 36.2 C (97.2 F) 07/26/2025 8:00 AM CDT Respiratory Rate 16 07/26/2025 8:00 AM CDT Oxygen Saturation 100% 07/26/2025 8:00 AM CDT Inhaled Oxygen Concentration - - Weight 74.1 kg (163 lb 5.8 oz) 07/25/2025 12:21 PM CDT Height 152.4 cm (5') 07/25/2025 12:21 PM CDT Body Mass Index 31.9 07/25/2025 12:21 PM CDT Plan of Treatment Health Maintenance Due Date Last Done Comments Cervical Cancer Screening 1990 Depression Screening 1990 Hepatitis C Screening 1990 Varicella Vaccines (2 of 2 - 2-dose childhood series) 10/05/2002 07/13/2002 Regular Well Visit/Exam 18-64 2008 Pneumococcal vaccine <65 (1 of 2 - PCV) 2009 HPV Vaccines (1 - 3-dose SCD M series) 2017 Covid-19 Vaccine (3 - Modern a risk series) 05/01/2021 04/03/2021, 03/06/2021 Influenza Vaccine (#1) 2025 08/30/2024 DTaP/Tdap/Td Vaccine (8 - Td or Tdap) 04/27/2026 04/27/2016, 09/04/2006, 08/26/1996, Additional history exists Hepatitis B Screening Completed 12/23/2002 , 07/13/2002, 08/26/1996 Procedures Procedure Name Priority Date/Time Associated Diagnosis Comments DRUGS OF ABUSE SCREEN, URINE WITHOUT CONFIRMATION STAT 07/25/2025 7:40 PM CDT POCT HCG, URINE Routine 07/25/2025 5:00 PM CDT POCT GLUCOSE DEVICE Routine 07/25/2025 4 :04 PM CDT TROPONIN I HIGH-SENSITIVITY 2-HOUR Timed 07/25/2025 2:28 PM CDT URINALYSIS AND REFLEX TO MICROSCOPIC STAT 07/25/2025 2:28 PM CDT POCT GLUCOSE DEVICE Routine 07/25/2025 2 :09 PM CDT ECG 12-LEAD STAT 07/25/2025 1:08 PM CDT POCT GLUCOSE DEVICE Routine 07/25/2025 1 2:49 PM CDT CTA/CTP RAPID STROKE Critical/Life-T hreatening 07/25/2025 12:38 PM CDT THYROID FUNCTION CASCADE STAT 07/25/2025 12:28 PM CDT EGFR STAT 07/25/2025 12:28 PM CDT DIFFERENTIAL AUTO STAT 07/25/2025 12: 28 PM CDT TROPONIN I HIGH-SENSITIVITY SERIES (BASELINE, 2HR, 4HR, 6HR) STAT 07/25/2025 12:28 PM CDT APTT STAT 07/25/2025 12:28 PM CDT COMPREHENSIVE METABOLIC PANEL STAT 07/25/2025 12:28 PM CDT CBC WITH AUTO DIFFERENTIAL STAT 07/25/2025 12:28 PM CDT POCT PROTHROMBIN TIME, WHOLE BLOOD Routine 07/25/2025 12:24 PM CDT POCT GLUCOSE DEVICE Routine 07/25/2025 1 2:24 PM CDT from Last 3 Months Results * (ABNORMAL) Drugs of Abuse Screen, Urine without Confirmation (07/25/2025 7:40 PM CDT) [facility] Amphetamine, ur Not Detected CutOff 500ng/mL Comment: Interpretive Data - Amphetamines: Samples containing greater than 500 ng/mL d-methamphetamine or other cross-reacting amphetamine compounds are reported as positive. Amphetamine immunoassays are subject to significant false positive rates due to cross-reactivity of non-amphetamine drugs. Confirmatory testing required for definitive results. Current Interpretive Data was last reviewed 2023. Barbiturates, ur Not Detected CutOff 200ng/mL [facility] Comment: Interpretive Data - Barbiturates: Samples containing greater than 200 ng/mL secobarbital or other cross-reacting barbiturate compounds are reported as positive. False positive and false negative results are possible. Confirmatory testing required for definitive results. Current Interpretive Data was last reviewed 2023. Benzodiazepines, ur Screen Positive, presumptive (A) CutOff 100ng/mL [facility] Comment: Interpretive Data - Benzodiazepines: Samples containing greater than 100 ng/mL nordiazepam or other cross-reacting compounds are reported as positive. False positive and false negative results are possible. Confirmatory testing required for definitive results. Current Interpretive Data was last reviewed 2023. Cannabinoids, ur Not Detected CutOff 50 ng/mL [facility] Comment: Interpretive Data - Cannabinoids: Samples containing greater than 50 ng/mL delta-9 THC -COOH or other cross- reacting compounds are reported as positive. False positive and false negative results are possible. Confirmatory testing required for definitive results. Current Interpretive Data was last reviewed 2023. Cocaine, ur Not Detected CutOff 150ng/mL [facility] Comment: Interpretive Data - Cocaine: Samples containing greater than 150 ng/mL benzoylecgonine or other cross- reacting compounds are reported as positive. False positive and false negative results are possible. Confirmatory testing required for definitive results. Current Interpretive Data was last reviewed 2023. Fentanyl, Ur Not Detected CutOff 5 ng/mL [facility] Comment: Interpretive Data - Fentanyl: Samples containing greater than 5 ng/mL norfentanyl, fentanyl, or other cross-reacting fentanyl compounds are reported as positive. False positive and false negative results are possible. Confirmatory testing required for definitive results. Current Interpretive Data was last reviewed 2024. Methadone, ur Not Detected CutOff 300ng/mL [facility] Comment: Interpretive Data - Methadone: Samples containing greater than 300 ng/mL d,l-methadone or other cross-reacting compounds are reported as positive. False positive and false negative results are possible. Confirmatory testing required for definitive results. Current Interpretive Data was last reviewed 2023. Opiates, ur Not Detected CutOff 300ng/mL [facility] Comment: Interpretive Data - Opiates: Samples containing greater than 300 ng/mL morphine or other cross-reacting compounds are reported as positive. False positive and false negative results are possible. Confirmatory testing required for definitive results. Current Interpretive Data was last reviewed 2023. Oxycodone, ur Not Detected CutOff 100ng/mL [facility] Comment: Interpretive Data - Oxycodone: Samples containing greater than 100 ng/mL oxycodone or other cross-reacting compounds are reported as positive. False positive and false negative results are possible. Confirmatory testing required for definitive results. Current Interpretive Data was last reviewed 2023. Phencyclidine, ur Not Detected CutOff 25 ng/mL [facility] Comment: Interpretive Data - Phencyclidine: Samples containing greater than 25 ng/mL phencyclidine or other cross-reacting compounds are reported as positive. False positive and false negative results are possible. Confirmatory testing required for definitive results. Current Interpretive Data was last reviewed 2023. Urine Creatinine 31 mg/dL [facility] Comment: Interpretive Data Urine Creatinine: < 10 mg/dL is extremely dilute = or > 10 but < 20 mg/dL is dilute = or > 20 mg/dL is normal Current Interpretive Data was last revised on 2018. Urine 07/25/2025 7:40 PM CDT 07/25/2025 7:52 PM CDT Narrative [facility] - 07/25/2025 8:24 PM CDT Drug of Abuse screening is performed by immunoassay for medical purposes only. This is not to be used for Pain Management purposes. us Israel Vasquez Jr., MD LAB URINE ORDERABLES F inal Result [facility] Department [place] [address] * POCT hCG, urine (07/25/2025 5:00 PM CDT) Pathologist [facility] HCG, ur, POC Negative Negative Lot Number [id number] QC Backgroud Clear Acceptable QC Control Line Acceptable Urine 07/25/2025 5:00 PM CDT Eliane España MD POINT OF CARE TEST ORDERABLES Fi nal Result * POCT glucose (07/25/2025 4:04 PM CDT) [facility] Glucose, POC 118 70 - 199 mg/dL Blood 07/25/2025 4:04 PM CDT 07/25/2025 4:04 PM CDT Result [facility] Eliane España MD LAB POCT ORDERABLES - DEVICE Fin al Result Performing Organization Address [facility] Co de Phone Number [facility] Department [place] [address] * Troponin I high-sensitivity 2-hour (07/25/2025 2:28 PM CDT) [facility] Trop I hs <4 <=17 ng/L Comment: Interpretive Data For further [facility] resources including the diagnostic algorithm and an aid in interpretation, copy and paste this link: [email or web address] Current Interpretive Data last revised 2020. Trop I hs delta 0 ng/L [facility] Trop I hs interp Insignificant [facility] Blood 07/25/2025 2:28 PM CDT 07/25/2025 2:45 PM CDT Rey Mills MD LAB BLOOD ORDERABLES Char l Result [facility] [place] [address] * (ABNORMAL) Urinalysis reflex to microscopic (07/25/2025 2:28 PM CDT) Color, ur Straw Yellow Clarity, ur Clear Clear [facility] Specific gravity, ur >1.042(H) 1.003 - 1.030 [facility] pH, urine 7.5 [facility] Comment: Interpretive Data U rine pH is affected by diet, medications, systemic acid-base disturbances, and renal tubular function. pH may affect urinary stone formation. For example, urine pH below 6.0 may help reduce the tendency for calcium phosphate stones and pH greater than 6.0 may reduce the tendency for uric acid stone formation. Source: [facility] Current Interpretive Data was last revised on 2017 Protein, ur ql Negative Negative [facility] Glucose, ur ql Negative Negative [facility] Ketones, ur Negative Negative [facility] Bilirubin, ur Negative Negative [facility] Blood, ur Negative Negative [facility] Urobilinogen, ur <2.0 <2.0 mg/dL [facility] Nitrite, ur Negative Negative [facility] Leukocyte esterase, ur Negative Negative [facility] UA reflex comment Reflex conditions for microscopic UA not met. [facility] Urine 07/25/2025 2:28 PM CDT 07/25/2025 2:38 PM CDT Eliane España MD LAB URINE ORDERABLES Final Resul t Performing Organization Address [facility] Co de Phone Number [facility] [place] [address] * POCT glucose (07/25/2025 2:09 PM CDT) Glucose, POC 75 70 - 199 mg/dL Blood 07/25/2025 2:09 PM CDT 07/25/2025 2:09 PM CDT Eliane España MD LAB POCT ORDERABLES - DEVICE Fin al Result Performing Organization Address City/[facility] Co de Phone Number [facility] [place] [address] * ECG 12-LEAD (07/25/2025 1:08 PM CDT) Narrative [facility] - 07/25/2025 1:08 PM CDT Lopez Flores MD 07/25/2025 8:53 PM ECG 12 lead Date/Time: 07/25/2025 1:08 PM Performed by: Shreyas Nguyen MD Authorized by: Eliane España MD Quality: Tracing quality: Limited by artifact Rate: ECG rate: 67 ECG rate assessment: normal Rhythm: Rhythm: sinus rhythm Ectopy: Ectopy: none QRS: QRS axis: Normal QRS intervals: Normal Conduction: Conduction: normal ST segments: ST segments: Normal T waves: T waves: normal Previous ECG: Previous ECG: Compared to current Date of previous EC06/28/2023 Similarity: No change Interpretation: Interpretation: normal Recommended Follow-up: Recommended follow up: further workup in the ED Comments: Electrocardiogram from 8:44 p.m. manifests sinus tachycardia rate of 107; normal LA, QRS, and QTC intervals; normal P, R, T-wave axis; no evidence of atrial enlargement or ventricular hypertrophy; normal ST segments and T-waves without evidence of active myocardial ischemia; no Q-waves or premature loss of R waves to suggest prior myocardial infarction. When compared with prior electrocardiogram from April 08, 2025 there are no significant changes. Moderate risk for acute coronary syndrome us Eliane España MD ECG ORDERABLES Edited Result - Final Performing Organization Address City/[facility]/ZIP Co de Phone Number [facility] * POCT glucose (07/25/2025 12:49 PM CDT) [facility] Signature Glucose, POC 98 70 - 199 mg/dL Blood 07/25/2025 12:4 9 PM CDT 07/25/2025 12:49 PM CDT us Notinfile Unknown LAB POCT ORDERABLES - DEVICE F inal Result [facility] [place] [address] * CTA/CTP Rapid Stroke (C) (07/25/2025 12:38 PM CDT) Anatomical Region Laterality Modality Head and Neck N/A Computed Tomogra phy 07/25/2025 12:5 2 PM CDT Impressions 07/25/2025 1:30 PM CDT 1. No acute intracranial hemorrhage. 2. No large territory edematous infarct. 3. No measurable perfusion deficit. 4. No intracranial large vessel occlusion nor severe stenosis. 5. No significant (>50%) carotid stenosis. 6. 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 7. Focal hypoattenuating region in the left basal ganglia may represent an age-indeterminate infarction. The Non Critical results were discussed with Dr. Andrews by Dr. Manav Nguyễn M.D. on 07/25/2025 12:48 PM. Dictated by: Manav Nguyễn M.D. The radiology attending physician has personally reviewed this study, and had reviewed and/or edited this written report and agrees with it. Electronically signed by: Demetria Melendez MD Narrative 07/25/2025 1:30 PM CDT EXAMINATION: 1. Computed tomography angiography (CTA) of the head without and with contrast 2. Computed tomography angiography (CTA) of the neck with contrast 3. CT perfusion imaging of the head with contrast HISTORY: 34-year-old female, stroke activation. Last known normal 8:30 PM yesterday. Symptoms include right facial droop and right-sided upper and lower extremity weakness. The patient is not a candidate for intervention. TECHNIQUE: CT of the head was performed with images acquired from skull base to vertex without intravenous contrast. Computed tomographic angiography was obtained from the aortic arch to the vertex following the uneventful administration of intravenous contrast. 3D images of the CTA were generated on a dedicated workstation/server support technician. LUMOback software (Jambo) was used for automated analyses of the CTA. CT perfusion of the brain was performed with intravenous contrast using a separate data acquisition. These data were transmitted to a separate workstation/server support technician for processing by RapidAI software (Jambo) to produce automated calculations of the estimated cerebral blood flow and Tmax. Contrast information: 100 mL Optiray-350 IV COMPARISON: CT 11/19/2005, MR 11/23/2023 FINDINGS: HEAD CT FINDINGS: Known dysgenesis of the corpus callosum is better evaluated on MR 11/23/2023. Parallel ventricles are unchanged from MR 11/23/2023. Prominent retrocerebellar space may represent an arachnoid cyst. Focal hypoattenuation within the left basal ganglia may represent an age-indeterminate infarction, not seen on MR 11/23/[address] 11/19/2005. There is no acute intracranial hemorrhage. There is no large territory of parenchymal edema. Ventricles are of normal size and morphology. There is no mass effect or midline shift. The orbits, paranasal sinuses, and mastoids are unremarkable. No acute skull fracture. ANGIOGRAPHIC FINDINGS: The visualized aortic arch appears normal with normal configuration of the great vessels. There is no significant stenosis of the origins of the great vessels. There is no geographic area of vascular paucity in the brain. Left anterior circulation: L CCA: no occlusion or significant stenosis L carotid bifurcation: no occlusion or significant stenosis L ICA cervical: no occlusion or significant stenosis L ICA intracranial: no occlusion or significant stenosis L M1: no occlusion or significant stenosis L M2 proximal or dominant: no occlusion or significant stenosis L mid-M2/M3 branches: no occlusion or significant stenosis L SHARMILA: no occlusion or significant stenosis Right anterior circulation: R CCA: no occlusion or significant stenosis R carotid bifurcation: no occlusion or significant stenosis R ICA cervical: no occlusion or significant stenosis R ICA intracranial: no occlusion or significant stenosis R M1: no occlusion or significant stenosis R M2 proximal or dominant: no occlusion or significant stenosis R mid-M2/M3 branches: no occlusion or significant stenosis R SHARMILA: no occlusion or significant stenosis Posterior circulation: L Vertebral Artery: no occlusion or significant stenosis R Vertebral Artery: no occlusion or significant stenosis Basilar Artery: no occlusion or significant stenosis L CONTRACT DRIVER: no occlusion or significant stenosis R CONTRACT DRIVER: no occlusion or significant stenosis There is no CTA evidence for cerebral aneurysm. There is no evidence for an arteriovenous malformation. INCIDENTAL FINDINGS: There is no suspicious cervical lymphadenopathy. There is no significant cervical spondylosis. Limited views of the lung apices are normal. PERFUSION FINDINGS: There is no measurable perfusion deficit in the brain. Estimated ischemic core volume (rCBF < 0.3): 0 mL Estimated hypoperfusion volume (Tmax > 6 sec): 0 mL Procedure Note Demetria Melendez MD PhD - 07/25/2025 EXAMINATION: 1. Computed tomography angiography (CTA) of the head without and with contrast 2. Computed tomography angiography (CTA) of the neck with contrast 3. CT perfusion imaging of the head with contrast HISTORY: 34-year-old female, stroke activation. Last known normal 8:30 PM yesterday. Symptoms include right facial droop and right-sided upper and lower extremity weakness. The patient is not a candidate for intervention. TECHNIQUE: CT of the head was performed with images acquired from skull base to vertex without intravenous contrast. Computed tomographic angiography was obtained from the aortic arch to the vertex following the uneventful administration of intravenous contrast. 3D images of the CTA were generated on a dedicated workstation/server support technician. LUMOback software (Jambo) was used for automated analyses of the CTA. CT perfusion of the brain was performed with intravenous contrast using a separate data acquisition. These data were transmitted to a separate workstation/server support technician for processing by RapidWalkmore software (Jambo) to produce automated calculations of the estimated cerebral blood flow and Tmax. Contrast information: 100 mL Optiray-350 IV COMPARISON: CT 11/19/2005, MR 11/23/2023 FINDINGS: HEAD CT FINDINGS: Known dysgenesis of the corpus callosum is better evaluated on MR 11/23/2023. Parallel ventricles are unchanged from MR 11/23/2023. Prominent retrocerebellar space may represent an arachnoid cyst. Focal hypoattenuation within the left basal ganglia may represent an age-indeterminate infarction, not seen on MR 11/23/[address] 11/19/2005. There is no acute intracranial hemorrhage. There is no large territory of parenchymal edema. Ventricles are of normal size and morphology. There is no mass effect or midline shift. The orbits, paranasal sinuses, and mastoids are unremarkable. No acute skull fracture. ANGIOGRAPHIC FINDINGS: The visualized aortic arch appears normal with normal configuration of the great vessels. There is no significant stenosis of the origins of the great vessels. There is no geographic area of vascular paucity in the brain. Left anterior circulation: L CCA: no occlusion or significant stenosis L carotid bifurcation: no occlusion or significant stenosis L ICA cervical: no occlusion or significant stenosis L ICA intracranial: no occlusion or significant stenosis L M1: no occlusion or significant stenosis L M2 proximal or dominant: no occlusion or significant stenosis L mid-M2/M3 branches: no occlusion or significant stenosis L SHARMILA: no occlusion or significant stenosis Right anterior circulation: R CCA: no occlusion or significant stenosis R carotid bifurcation: no occlusion or significant stenosis R ICA cervical: no occlusion or significant stenosis R ICA intracranial: no occlusion or significant stenosis R M1: no occlusion or significant stenosis R M2 proximal or dominant: no occlusion or significant stenosis R mid-M2/M3 branches: no occlusion or significant stenosis R SHARMILA: no occlusion or significant stenosis Posterior circulation: L Vertebral Artery: no occlusion or significant stenosis R Vertebral Artery: no occlusion or significant stenosis Basilar Artery: no occlusion or significant stenosis L CONTRACT DRIVER: no occlusion or significant stenosis R CONTRACT DRIVER: no occlusion or significant stenosis There is no CTA evidence for cerebral aneurysm. There is no evidence for an arteriovenous malformation. INCIDENTAL FINDINGS: There is no suspicious cervical lymphadenopathy. There is no significant cervical spondylosis. Limited views of the lung apices are normal. PERFUSION FINDINGS: There is no measurable perfusion deficit in the brain. Estimated ischemic core volume (rCBF < 0.3): 0 mL Estimated hypoperfusion volume (Tmax > 6 sec): 0 mL IMPRESSION: 1. No acute intracranial hemorrhage. 2. No large territory edematous infarct. 3. No measurable perfusion deficit. 4. No intracranial large vessel occlusion nor severe stenosis. 5. No significant (>50%) carotid stenosis. 6. 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 7. Focal hypoattenuating region in the left basal ganglia may represent an age-indeterminate infarction. The Non Critical results were discussed with Dr. Andrews by Dr. Manav Nguyễn M.D. on 07/25/2025 12:48 PM. Dictated by: Manav Nguyễn M.D. The radiology attending physician has personally reviewed this study, and had reviewed and/or edited this written report and agrees with it. Electronically signed by: Demetria Melendez MD Rey Mills MD IMG CT PROCEDURES Final R esult * Troponin I high-sensitivity series (baseline, 2hr, 4hr, 6hr) (07/25/2025 12:28 PM CDT) Trop I hs <4 <=17 ng/L Comment: Interpretive Data For further [facility] resources including the diagnostic algorithm and an aid in interpretation, copy and paste this link: [email or web address].testcatalog.org/[email or web address] Current Interpretive Data last revised 2020. Blood 07/25/2025 12:2 8 PM CDT 07/25/2025 1:16 PM CDT us Eliane España MD LAB BLOOD ORDERABLES Final Resul t Performing Organization Address [facility] Co de Phone Number [facility] Department [place] [address] * eGFR (07/25/2025 12:28 PM CDT) eGFR 81 >=60 mL/min/1. 73 m2 Comment: Interpretive Data Reference Interval Normal >/= 90 mL/min/1.73m2 Mildly decreased* 60 - 89 mL/min/1.73m2 Mildly to moderately decreased 45 - 59 mL/min/1.73m2 Moderately to severely decreased 30 - 44 mL/min/1.73m2 Severely decreased 15 - 29 mL/min/1.73m2 Kidney Failure < 15 mL/min/1.73m2 *Relative to young adult level Estimated glomerular filtration rate is determined by the 2020 CKD-EPI equation recommended by the National Kidney Foundation (A Unifying Approach to GFR Estimation: Recommendations of the NKF-ASK Task Force on Reassessing the Inclusion of Race in Diagnosing Kidney Disease, JASN 202). The CKD-EPI equation should not be used for patients with unstable renal function and has not been validated in children and those over 70. Current interpretive data was last reviewed 2021. Blood 07/25/2025 12:2 8 PM CDT 07/25/2025 12:39 PM CDT us Rey Mills MD LAB BLOOD ORDERABLES Char l Result Performing Organization Address City/[facility]/ZIP Co de Phone Number [facility] Department [place] [address] * Differential, auto (07/25/2025 12:28 PM CDT) Neutrophil abs 5.79 1.50 - 6.50 K/cumm Imm gran abs 0.03 0.00 - 0.10 K/cumm [facility] Lymphocyte abs 2.38 0.80 - 3.30 K/cumm [facility] Monocyte abs 0.73 0.20 - 0.80 K/cumm [facility] Eosinophil abs 0.17 0.00 - 0.50 K/cumm [facility] Basophil abs 0.08 0.00 - 0.10 K/cumm [facility] Neutrophil pct 63.0 % [facility] Comment: Interpretive Data Percent cell count reference ranges are not reported, since discordance with absolute values may lead to misinterpretation of CBC data. Current Interpretive Data was last revised on 2018. Imm gran pct 0.3 % [facility] Comment: Interpretive Data Percent cell count reference ranges are not reported, since discordance with absolute values may lead to misinterpretation of CBC data. Current Interpretive Data was last revised on 2018. Lymphocyte pct 25.9 % [facility] Comment: Interpretive Data Percent cell count reference ranges are not reported, since discordance with absolute values may lead to misinterpretation of CBC data. Current Interpretive Data was last revised on 2018. Monocyte pct 8.0 % [facility] Comment: Interpretive Data Percent cell count reference ranges are not reported, since discordance with absolute values may lead to misinterpretation of CBC data. Current Interpretive Data was last revised on 2018. Eosinophil pct 1.9 % [facility] Comment: Interpretive Data Percent cell count reference ranges are not reported, since discordance with absolute values may lead to misinterpretation of CBC data. Current Interpretive Data was last revised on 2018. Basophil pct 0.9 % [facility] Comment: Interpretive Data Percent cell count reference ranges are not reported, since discordance with absolute values may lead to misinterpretation of CBC data. Current Interpretive Data was last revised on 2018. Blood 07/25/2025 12:2 8 PM CDT 07/25/2025 12:39 PM CDT Eliane España MD LAB BLOOD ORDERABLES Final Resul t Performing Organization Address City/[facility]/ZIP Co de Phone Number [facility] [place] [address] * Thyroid Function [place] (07/25/2025 12:28 PM CDT) [facility] TSH 1.98 0.30 - 4.20 mcIUnit/mL Blood 07/25/2025 12:2 8 PM CDT 07/25/2025 12:39 PM CDT Roman Mccormick MD LAB BLOOD ORDERABLES Char l Result Performing Organization Address [facility] Co de Phone Number [facility] Department [place] [address] * CBC with auto differential (07/25/2025 12:28 PM CDT) [facility] WBC 9.18 3.80 - 9.90 K/cumm Hgb 14.2 11.9 - 15.5 g/dL [facility] Hct 43.5 35.6 - 45.5 % [facility] Plt 304 150 - 400 K/cumm [facility] MPV 9.4 9.1 - 12.3 fL [facility] RBC 4.67 3.90 - 5.20 M/cumm [facility] MCV 93.1 81.3 - 96.4 fL [facility] MCH 30.4 27.1 - 33.3 pg [facility] MCHC 32.6 32.3 - 35.7 g/dL [facility] RDW CV 12.5 11.1 - 14.9 % [facility] RDW SD 42.9 35.7 - 48.1 fL [facility] NRBC abs 0.00 0.00 - 0.01 K/cumm [facility] Blood Venous blood specimen / Unknown 07/25/2025 12:28 PM CDT 07/25/2025 12:39 PM CDT Narrative [facility] - 07/25/2025 12:44 PM CDT Potential Stroke Patient Eliane España MD LAB BLOOD ORDERABLES Final Resul t Performing Organization Address [facility] Co de Phone Number [facility] [place] [address] * aPTT (07/25/2025 12:28 PM CDT) aPTT 31 26 - 38 sec Comment: Interpretive Data Heparin therapeutic range: 66.0 - 100.0 seconds. Range based on correlation with therapeutic heparin activity range of 0.3 - 0.7 Units/mL. Current interpretive data was last revised on 2023. Blood Venous blood specimen / Unknown 07/25/2025 12:28 PM CDT 07/25/2025 12:39 PM CDT Narrative [facility] - 07/25/2025 1:03 PM CDT Potential stroke patient. Eliane España MD LAB BLOOD ORDERABLES Final Resul t Performing Organization Address [facility] Co de Phone Number MELITA [facility] [place] [address] * (ABNORMAL) Comprehensive metabolic panel (07/25/2025 12:28 PM CDT) Sodium 140 135 - 145 mmol/L Potassium, pl 4.1 3.3 - 4.9 mmol/L [facility] Chloride 109 97 - 110 mmol/L [facility] CO2 23 22 - 32 mmol/L [facility] Anion gap 8 2 - 15 mmol/L [facility] BUN 11 6 - 25 mg/dL [facility] Creatinine 0.95 0.60 - 1.10 mg/dL [facility] Glucose 62(L) 70 - 199 mg/dL [facility] Comment: Interpretive Data Fasting glucose >/= 126 mg/dl is diagnostic for diabetes. Fasting is defined as no caloric intake for at least 8 hours. Fasting glucose between 100 mg/dl to 125 mg/dl is diagnostic of prediabetes. In a patient with classic symptoms of hyperglycemia or hyperglycemic crisis, a random glucose >/= 200 mg/dl is diagnostic for diabetes. In the absence of unequivocal hyperglycemia, results should be confirmed by repeat testing. The classification and Diagnosis of Diabetes Diabetes Care 2021; 46: S19-S40. Current interpretive data was last revised 2022. Calcium 9.5 8.5 - 10.3 mg/dL [facility] Bilirubin, total 0.3 0.1 - 1.2 mg/dL [facility] Protein, pl 7.3 6.5 - 8.5 g/dL [facility] Albumin 4.4 3.5 - 5.0 g/dL [facility] Alk phos 85 40 - 130 Units/L [facility] ALT 16 7 - 45 Units/L [facility] AST 16 10 - 45 Units/L [facility] Blood Venous blood specimen / Unknown 07/25/2025 12:28 PM CDT 07/25/2025 12:39 PM CDT Narrative [facility] - 07/25/2025 1:08 PM CDT Potential Stroke Patient us Eliane España MD LAB BLOOD ORDERABLES Final Resul t Performing Organization Address City/[facility]/ZIP Co de Phone Number [facility] [place] [address] * POCT prothrombin time, whole blood (07/25/2025 12:24 PM CDT) PT, POC 12.2 10.6 - 13.5 sec INR, bld, POC 1.0 0.9 - 1.2 [facility] Blood 07/25/2025 12:2 4 PM CDT 07/25/2025 12:24 PM CDT us Notinfile Unknown LAB POCT ORDERABLES - DEVICE F inal Result [facility] Department [place] [address] * (ABNORMAL) POCT glucose (07/25/2025 12:24 PM CDT) Glucose, POC 63(L) 70 - 199 mg/dL Blood 07/25/2025 12:2 4 PM CDT 07/25/2025 12:24 PM CDT us Notinfile Unknown LAB POCT ORDERABLES - DEVICE F inal Result Performing Organization Address City/State/[facility] Co ny Phone Number MELITA [facility] [place] [address] from Last 3 Months Advance Directives For more information, please contact: [phone] * Full Code (Latest Code Status on File) Date Activated Date Inactivated Comments 07/25/2025 10:45 PM 07/26/2025 4:54 PM [employer] Programmer Relationship Specialty Start Date End Date Lorraine Grimaldo MD [address] [place] [address] PCP - General Family Medicine 12/29/20 Jessy Michaels PA [address] [place] [address] Physician Hinging Machine Operator Family Medicine 07/16/23
--- OUTSIDE RECORDS SUMMARY | 2025-08-15 12:51 | XMS_ITS | Encounter Summary ---
Author Organization [facility] Address [facility] [place] [address] Care Team Providers Care Sprinkling System Irrigator Name Role Phone Lorraine Grimaldo MD Primary Care Provider [phone] Encounter Details Date Type Department Care Team (Late st Contact Info) Description 03/15/2025 [employer] Platform Message Enc [facility] [place] [address] Kecia Galicia PA [address] [place] [address] Visit Follow Up Social History Tobacco Use [...] declined 07/02/2023 How often do you attend denominational or episcopal serv ices? Patient declined 07/02/2023 Do you belong to any clubs o r organizations such as denominational groups, unions, fraternal or athletic groups, or [...] medical care, and heating? Patient declined 07/02/2023 [facility] Occupat ional [facility] - Occupational Stress Questionnaire Answer Date [...] place to sleep or slept in a group home (including now)? No 07/02/2023 Comments No Sex and Gender Information Value Date Recorded Sex Assigned at Female 12/22/2024 4:19 PM SALES AND LEASING CONSULTANT Legal Sex Female 5:48 PM SALES AND LEASING CONSULTANT Gender Identity Not on file Sexual Orientation Not on file documented as of this encounter Functional Status * Are you deaf or do you have serious difficulty hearing Answer Date of Assessment Author Status No 07/02/2023 6:00 AM Torri Gage RN Active * Are you blind or do you have serious difficulty seeing, even when wearing glasses? Answer Date of Assessment Author Status No 07/02/2023 6:00 AM Torri Gage RN Active * Do you have serious difficulty walking or climbing stairs? Answer Date of Assessment Author Status No 07/02/2023 6:00 AM Torri Gage RN Active * Do you have difficulty dressing or bathing? Answer Date of Assessment Author Status No 07/02/2023 6:00 AM Torri Gage RN Active * Because of a physical, mental, or emotional condition, do you have difficulty doing errands alone such as visiting a doctor's office or shopping? Answer Date of Assessment Author Status No 07/02/2023 6:00 AM Torri Gage RN Active documented as of this encounter Mental Status * Because of a physical, mental, or emotional condition, do you have serious difficulty concentrating, remembering, or making decisions? Answer Entry Date Author Status No 07/02/2023 6:00 AM Torri Gage RN Active documented in this encounter Plan of Treatment Not on file documented as of this encounter Visit Diagnoses Not on filedocumented in this encounter Care Teams Sprinkling System Irrigator Relationship Specialty Start Date End Date Lorraine Grimaldo MD [address] [place], [place] [address] PCP - General FAMILY PRACTICE 08/24/19 documented as of this encounter
--- OUTSIDE RECORDS SUMMARY | 2025-08-15 12:51 | XMS_ITS | Clinical Summary ---
Author Organization [facility] Address [address] [place] [address] Care Team Providers Care Test And Turn Up Technician Name Role Phone Lorraine Grimaldo MD Primary Care Provider [phone] Allergies Active Allergy Reactions Criticality Noted Date Comments Penicillins Unknown 08/24/2019 Reaction occurred when she was an therefore unsure of reaction Medications FLUoxetine 40 [...] mouth 2 (two) times daily. 5 Active ibuprofen (MOTRIN) 600 MG tablet Take 1 tablet (600 mg total) by mouth 3 (three) times daily as needed. FOR PAIN 5 Active orphenadrine ER (NORFLEX) 100 MG TABLET SR 12 HR 12 hr tablet Take 1 tablet (100 mg total) by mouth 2 (two) times daily as needed. 5 Active Active Problems Problem Noted Date Diagnosed Date Acute pain of left knee 03/31/2025 Neurological deficit present 07/02/2023 Right facial numbness 07/01/2023 IUGR (intrauterine growth re striction) affecting care of mother ([facility]) 02/02/2020 Threatened labor ([facility]) 01/01/2020 Multigravida in third trimester ([facility]) 2019 Overview (12/31/2019): EDC 02/23/2020 by 1st trimester sono. 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, antepartum ([facility]) 12/31/2019 Overview (12/31/2019): Followed by MFM and last seen yesterday, 12/30/2019 labor in third trimester ([facility]) 12/31 Overview (12/31/2019): Contractions started at 1430 and arrived at [facility] at 1600 and dilated 4cm/zero station/70%/soft/vertex labor ([facility]) 12/31/2019 Family History Medical History Relation Comments Defects [...] declined 07/02/2023 How often do you attend orthodox or sikh serv ices? Patient declined 07/02/2023 Do you belong to any clubs o r organizations such as orthodox groups, unions, fraternal or athletic groups, or [...] medical care, and heating? Patient declined 07/02/2023 [facility] of Occupat ional Health - Occupational Stress [...] place to sleep or slept in a long term (including now)? No 07/02/2023 Comments No Sex and Gender Information Value Date Recorded Sex Assigned at Female 12/22/2024 4:19 PM COST ESTIMATOR Legal Sex Female 5:48 PM COST ESTIMATOR Gender Identity Not on file Sexual Orientation Not on file Last Filed Vital Signs Vital Sign Reading Time Taken Comments Blood Pressure 112/67 11/12/2024 4:45 PM COST ESTIMATOR Pulse 68 11/12/2024 4:45 PM COST ESTIMATOR Temperature 36.1 C (97 F) 11/12/2024 2:47 PM COST ESTIMATOR Respiratory Rate 16 11/12/2024 4:45 PM COST ESTIMATOR Oxygen Saturation 100% 11/12/2024 4:45 PM COST ESTIMATOR Inhaled Oxygen Concentration - - Weight 70.8 kg (156 lb) 04/21/2025 9:49 AM CDT Height 149.9 cm (4' 11) 04/21/2025 9:49 AM CDT Body Mass Index 31.51 04/21/2025 9:49 AM CDT Plan of Treatment Health Maintenance Due [...] Years) (1 of 2 - PCV) 2009 HPV Vaccines (1 - 3-dose SCDM series) 2017 Cervical Cancer Screening Pap with HPV Testing (Age 30 to 64) Every 5 Years 2020 Cervical Cancer Screening with HPV 2020 COVID-19 Vaccine ( season) 2025 Meningococcal B Vaccine Aged Out No l onger eligible based on patient's age to complete this topic Meningococcal Vaccine Aged Out No sofía cm eligible based on patient's age to complete this topic RSV Immunizations Under 20 Months Aged Out No longer eligible based on patient's age to complete this topic Insurance [employer] Advance Directives * Full Code (Latest Code [...] 4:08 PM 12/31/2019 7:38 PM Care Teams Test And Turn Up Technician Relationship Specialty Start Date End Date Lorraine Grimaldo MD [address] [address] PCP - General FAMILY PRACTICE 08/24/19
--- NOTE | 2025-08-15 13:09 | ED.GENADULT ---
HPI - General Adult General Chief complaint: Unspecified Stated complaint: rt. 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 Patient states that pain comes all of a sudden and then it dissipates. She denies having any fever or chills. No history of any trauma She feels as though elephant sitting on her face. Related Data Home Medications ?Medication ?Instructions ?Recorded ?Confirmed ?Last Taken ?Type bupropion HCl 150 mg 24 hr tablet, 150 mg PO DAILY 01/22/25 Unknown History extended release (Wellbutrin XL) fluoxetine 40 mg capsule 40 mg PO DAILY 01/22/25 Unknown History meloxicam 15 mg tablet 15 mg PO DAILY 01/22/25 Unknown History methocarbamol 500 mg tablet 500 mg PO TID 01/22/25 Unknown History propranolol 10 mg tablet 10 mg PO Q12H 01/22/25 Unknown History ropinirole 1 mg tablet 1 mg PO BID 01/22/25 Unknown History temazepam 15 mg capsule (Restoril) 15 mg PO HS 01/22/25 Unknown History topiramate 100 mg tablet (Topamax) 100 mg PO HS 01/22/25 Unknown History Allergies Allergy/AdvReac Type Severity Reaction Status Date / Time Penicillins Allergy Mild Rash Verified 08/15/25 12:09 Review of Systems Review of Systems: All systems reviewed & are unremarkable except as noted in HPI and below Constitutional: Constitutional: Reports no additional constitutional complaints Eyes: Eyes: Reports no additional eye complaints ENT: Reports system reviewed and no additional complaints, except as documented Cardiovascular: Cardiovascular: Reports no additional cardiovascular complaints Respiratory: Respiratory: Reports no additional respiratory complaints Gastrointestinal: Gastrointestinal: Reports no additional gastrointestinal complaints Genitourinary: Genitourinary: Reports no additional female genitourinary complaints Musculoskeletal: Musculoskeletal: Reports no additional musculoskeletal complaints Neurologic: Reports system reviewed and no additional complaints, except as documented PMFSH Past Medical History Medical History Arthritis Hypertension Exam Narrative: GENERAL: WELL-APPEARING, WELL-NOURISHED, AND IN NO ACUTE DISTRESS. HEAD: NORMOCEPHALIC, ATRAUMATIC. EYES: PERRLA AND EOMI. ENT: NARES CLEAR, NO RHINORRHEA OR EPISTAXIS. MUCOUS MEMBRANES MOIST. NO MAXILLARY SINUS TENDERNESS, NO DRAINAGE. NECK: SUPPLE. CHEST: CLEAR TO AUSCULTATION. NO RESPIRATORY DISTRESS. HEART: REGULAR RATE AND RHYTHM. NO MURMUR HEARD. NORMAL PERIPHERAL PULSES. EXTREMITIES: NORMAL RANGE OF MOTION. NO EDEMA. SKIN: WARM, DRY, NO RASH. NEURO: NO FOCAL DEFICITS. ALERT AND ORIENTED X3. PSYCH: NORMAL MOOD AND AFFECT. Course Course Emergency Course: INFORMED ABOUT THE CT FINDINGS CAUSE OF HER PAIN IS UNKNOWN AT THIS TIME RECOMMENDED HER TO CONTINUE HOME MEDICATIONS, FOLLOW-UP WITH THE PRIMARY DOCTOR. Vital Signs Vital signs: Vital Signs Temperature 36.4 C 08/15/25 12:05 Pulse Rate 85 08/15/25 12:05 Respiratory Rate 16 08/15/25 12:05 Blood Pressure 99/67 L 08/15/25 12:05 Pulse Oximetry 99 08/15/25 12:05 Oxygen Delivery Room Air 08/15/25 12:05 Temperature 36.4 C 08/15/25 12:05 Pulse Rate 85 08/15/25 12:05 Respiratory Rate 16 08/15/25 12:05 Blood Pressure 99/67 L 08/15/25 12:05 Pulse Oximetry 99 08/15/25 12:05 Oxygen Delivery Room Air 08/15/25 12:05 Medical Decision Making Differential Diagnosis Differential Diagnosis: URI, sinusitis, maxillary sinus mass Vital Signs Vital Signs: Vital Signs Temperature 36.4 C 08/15/25 12:05 Pulse Rate 85 08/15/25 12:05 Respiratory Rate 16 08/15/25 12:05 Blood Pressure 99/67 L 08/15/25 12:05 Pulse Oximetry 99 08/15/25 12:05 Oxygen Delivery Room Air 08/15/25 12:05 Temperature 36.4 C 08/15/25 12:05 Pulse Rate 85 08/15/25 12:05 Respiratory Rate 16 08/15/25 12:05 Blood Pressure 99/67 L 08/15/25 12:05 Pulse Oximetry 99 08/15/25 12:05 Oxygen Delivery Room Air 08/15/25 12:05 Imaging Data Radiologist's impression: ITS Impressions Sinuses CT 08/15/25 12:45 IMPRESSION: 1. Paranasal sinuses and mastoid air cells are clear. 2. The palatine tonsils are prominent, left greater than right.. Discharge Plan Discharge Clinical Impression: Chronic facial pain Patient Disposition: Home Condition: Stable Instructions: Acute Headache (DC) Additional Instructions: continue home medication, follow-up with your primary doctor Patient Language: Ivorian Prescriptions: No Action bupropion HCl [Wellbutrin XL] 150 mg tablet extended release 24 hr 150 mg PO DAILY temazepam [Restoril] 15 mg capsule 15 mg PO HS topiramate [Topamax] 100 mg tablet 100 mg PO HS fluoxetine 40 mg capsule 40 mg PO DAILY meloxicam 15 mg tablet 15 mg PO DAILY methocarbamol 500 mg tablet 500 mg PO TID propranolol 10 mg tablet 10 mg PO Q12H ropinirole 1 mg tablet 1 mg PO BID orphenadrine citrate 100 mg tablet extended release 100 mg PO BID PRN (Reason: pain) Qty: 20 0RF ibuprofen 600 mg tablet 600 mg PO TID PRN (Reason: pain) Qty: 20 0RF Follow-up/Referrals: Mehul,Primo [Other]
[2025-08-15 13:21] VITALS: BP 102/80; PULSE 76; RESP 17; TEMP 36.4; O2SAT 98
== END 2025-08-15 13:21 | disposition home or self-care (01) ==
PROVIDERS: Emergency Provider Family Medicine
DX: R68.84 Jaw pain (principal); G89.29 Other chronic pain; I10 Essential (primary) hypertension
CPT/HCPCS: 70486; 99284